=== PATIENT | female | born 1955 | race Caucasian/White ===

== ENCOUNTER 2024-10-11 07:54 | Outpatient (CLI) | payer BC | END 2024-10-11 07:55 | disposition home or self-care (01) | LOC: CSHMAMMO 07:54 | PROVIDERS: ATTEND Nurse Practitioner Family | DX: Z12.31 Encounter for screening mammogram for malignant neoplasm of breast (principal); M85.89 Other specified disorders of bone density and structure, multiple sites; Z98.890 Other specified postprocedural states | CPT/HCPCS: 77063; 77067; 77080 ==